=== PATIENT | male | born 1995 | race Caucasian/White ===

== ENCOUNTER 2019-03-14 10:55 | Emergency (ER) | payer MEDICAID ==
[~2019-03-14] VITALS: Ht 162.6 cm; Wt 72.6 kg
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
[2019-03-14 10:57] VITALS: BP 121/78
--- NOTE | 2019-03-14 11:35 | NUR ---
DR CHRISTENSEN AT BEDSIDE
[2019-03-14] MEDS ORDERED: IBUPROFEN 600 MG TABLET PO ONE (12:00)
--- NOTE | 2019-03-14 12:00 | NUR ---
Patient does not wish to proceed with medical care recommended by Dr. Marion. Patient given information related to possible complications, up to and including , which could occur as a result of leaving the hospital at this time. Patient verbalizes understanding of risks involved due to leaving against medical advice. Patient has signed AMA form.
== END 2019-03-14 11:56 | disposition left against medical advice (07) ==
LOC: EDBD 10:57 → ER 10:57
DX: S00.81XA Abrasion of other part of head, initial encounter (principal); F17.200 Nicotine dependence, unspecified, uncomplicated; V49.59XA Passenger injured in collision with other motor vehicles in traffic accident, initial encounter; Y93.89 Activity, other specified; Y92.413 State road as the place of occurrence of the external cause; Y99.8 Other external cause status